=== PATIENT | male | born 1950 | race Caucasian/White ===

== ENCOUNTER 2019-08-10 02:08 | Inpatient (IN) | payer OTHER ==
[~2019-08-10] VITALS: Ht 175.3 cm; Wt 84.7 kg
--- NOTE | 2019-08-10 02:11 | NUR ---
PT LALA [facility] FROM HOME FOR /O SOB EMS STATES PT WAS NOT SNEHA HOME O2 OR C PAP AND WAS 38% ON ROOM AIR PT PLACED ON 4L NC AND SATS RETURNED TO 96%, ON ARRIVAL PT TEMP 103.6 OTHER VSS PT RESPONDS TO QUESTIONS SLOWLY AND UNABLE TO ANSWER SOME, PT LIVES AT HOME WITH
[2019-08-10] MEDS ORDERED: ACETAMINOPHEN 325 MG TABLET ONE (02:17)
[2019-08-10] MEDS ORDERED: FEBU40TA PO (02:22)
[2019-08-10] MEDS ORDERED: ESCI20TA PO (02:24)
[2019-08-10] MEDS ORDERED: SPIR25TA5 PO (02:27)
[2019-08-10] MEDS ORDERED: ATOR20TA37 PO (02:27)
[2019-08-10] MEDS ORDERED: ENAL20TA PO (02:27)
[2019-08-10] MEDS ORDERED: GABA300C10 PO (02:27)
[2019-08-10] MEDS ORDERED: LORA-446 PO (02:27)
[2019-08-10] MEDS ORDERED: AMLO-150 PO (02:27)
[2019-08-10] MEDS ORDERED: METO50TA82 PO (02:27)
[2019-08-10] MEDS ORDERED: LEVO50TA5 PO (02:27)
[2019-08-10] MEDS ORDERED: SODIUM CHLORIDE 0.9% 1,000ML IVBOLUS ONE (02:30)
[2019-08-10] MEDS ORDERED: ACETAMINOPHEN 325 MG TABLET PO ONE (02:30)
--- NOTE | 2019-08-10 02:36 | NUR ---
PT TOLERATED ALL MEDICAL PROCEDURES, PLACED ON ALL MONITORS, MEDS GIVEN
[2019-08-10 02:50] LABS: BASOPHILS # (AUTO) 0.03 x10^3/uL (0-0.1); BASOPHILS % (AUTO) 1 % (0-1); EOSINOPHILS # (AUTO) 0.05 x10^3/uL (0-0.4); EOSINOPHILS % (AUTO) 1 % (1-7); LYMPHOCYTES # (AUTO) 0.92 x10^3/uL (1-3.4); LYMPHOCYTES % (AUTO) 14 % (22-44); MD NO; MEAN CORPUSCULAR HEMOGLOBIN 32.1 pg (27.5-34.5); MEAN CORPUSCULAR HGB CONC 32.9 g/dL (33.2-36.2); MEAN CORPUSCULAR VOLUME 97.5 fL (81-97); MEAN PLATELET VOLUME 8.9 fL (7.4-10.4); MONOCYTES # (AUTO) 0.42 x10^3/uL (0.2-0.8); MONOCYTES % (AUTO) 7 % (2-9); NEUTROPHILS # (AUTO) 5.02 x10^3/uL (1.8-6.8); NEUTROPHILS % (AUTO) 78 % (42-75); PLATELET COUNT 198 x10^3/uL (130-400); RED BLOOD COUNT 3.86 x10^6/uL (4.38-5.82); RED CELL DISTRIBUTION WIDTH 13.5 % (9.4-14.8)
[2019-08-10 03:02] LABS: ALBUMIN 3.1 g/dL (3.4-5.0); ANION GAP 6 mmol/L (5-15); CALCIUM 8.2 mg/dL (8.5-10.1); CHLORIDE 106 mmol/L (98-107)
[2019-08-10 03:08] LABS: ALANINE AMINOTRANSFERASE 25 U/L (12-78); ALKALINE PHOSPHATASE 44 U/L (45-117); BILIRUBIN,TOTAL 0.4 mg/dL (0.2-1.0); CREATININE 1.46 mg/dL (0.7-1.3); TOTAL PROTEIN 6.4 g/dL (6.4-8.2); TROPONIN I < 0.015 ng/mL (0.000-0.045)
[2019-08-10] MEDS ORDERED: CEFEPIME 1 GM in DEXTROSE 5% 50 ML IV ONE (03:30)
[2019-08-10] MEDS ORDERED: VANCOMYCIN PER PHARMACY MC PRN ×2 (03:30→04:30)
[2019-08-10 03:41] LABS: RAPID INFLUENZA A Negative (Negative); RAPID INFLUENZA B Negative (Negative)
[2019-08-10] MEDS ORDERED: VANCOMYCIN 1,600 MG in SODIUM CHLORIDE 0.9% 250 ML IV SCH (03:45)
[2019-08-10] MEDS: VANCOMYCIN 1,600 MG in SODIUM CHLORIDE 0.9% 250 ML IV ONE (03:45)
--- NOTE | 2019-08-10 03:45 | NUR ---
AWAITING ADMIT BED, ADMITTING MD AT BS
[2019-08-10] MEDS ORDERED: PHARMACY MAY ADJ FOR RENAL FX MC PRN (04:30)
[2019-08-10] MEDS ORDERED: ACETAMINOPHEN 325 MG TABLET PO PRN (04:30)
[2019-08-10] MEDS ORDERED: hydrALAzine 20 MG/ML, 1ML IVPush PRN (04:30)
[2019-08-10] MEDS ORDERED: ONDANSETRON 2MG/ML, 2ML IVPush PRN (04:30)
--- NOTE | 2019-08-10 04:41 | NUR ---
REPORT TO [facility] PT TO FLOOR WITH ОЛЬГА
[2019-08-10] MEDS ORDERED: CIPROFLOXACIN/PMX 400MG/200ML 200 ML IVPB SCH (05:00)
[2019-08-10] MEDS: HEPARIN 5,000 UNITS/ML, 1ML SQ SCH ×3 (05:00→20:29)
[2019-08-10 05:01] VITALS: BP 123/54
[2019-08-10 05:03] LABS: FREE T4 (FREE THYROXINE) 0.93 ng/dL (0.76-1.46)
[2019-08-10] MEDS ORDERED: PHARMACOKINETIC MONITORING MC PRN (05:30)
[2019-08-10] MEDS ORDERED: GABAPENTIN 100 MG CAPSULE PO SCH (06:00)
[2019-08-10] MEDS ORDERED: PIPERACILLIN/TAZO/PMX 4.5GM 100 ML IVPB SCH (06:00)
[2019-08-10] MEDS ORDERED: LEVOTHYROXINE 50 MCG TABLET PO SCH (06:30)
[2019-08-10] MEDS: METOPROLOL TARTRATE 50 MG TAB PO SCH ×3 (07:48→20:30)
[2019-08-10] MEDS: SPIRONOLACTONE 25 MG TABLET PO SCH (07:48)
[2019-08-10] MEDS: ESCITALOPRAM 10MG TABLET PO SCH (07:48)
[2019-08-10] MEDS: AMLODIPINE 5 MG TABLET PO SCH (07:48)
[2019-08-10] MEDS: GABAPENTIN 300 MG CAPSULE PO SCH ×4 (07:50→20:28)
[2019-08-10] MEDS: ENALAPRIL 20MG TABLET PO SCH ×2 (07:58→20:29)
[2019-08-10] MEDS: FEBUXOSTAT 40 MG TABLET PO SCH (07:58)
[2019-08-10 08:23] VITALS: BP 102/51
[2019-08-10] MEDS ORDERED: LORazepam 0.5MG TABLET PO SCH (09:00)
[2019-08-10] MEDS ORDERED: LORazepam 1MG TABLET PO SCH (09:00)
[2019-08-10 10:54] LABS: MICROSCOPIC NOT IND
[2019-08-10 11:03] LABS: CULTURE INDICATED? NO
[2019-08-10] MEDS: PIPERACILLIN/TAZO/PMX 4.5GM 100 ML IVPB SCH ×2 (13:43→20:29)
[2019-08-10 13:44] VITALS: BP 111/53
[2019-08-10] MEDS: LORazepam 0.5MG TABLET PO PRN ×2 (15:35→20:29)
[2019-08-10] MEDS: OXYcodone IR 5MG TABLET PO PRN (16:20)
[2019-08-10] MEDS: LIDODERM 5% PATCH TD SCH (16:25)
[2019-08-10 18:49] VITALS: BP 117/61
[2019-08-10] MEDS: TEMAZEPAM 15 MG CAPSULE PO PRN (20:28)
[2019-08-10] MEDS: ATORVASTATIN 20 MG TABLET PO SCH (20:29)
[2019-08-11 00:47] VITALS: BP 118/54
[2019-08-11] MEDS: PIPERACILLIN/TAZO/PMX 4.5GM 100 ML IVPB SCH ×4 (02:50→20:07)
[2019-08-11] MEDS: OXYcodone IR 5MG TABLET PO PRN ×3 (03:42→16:12)
[2019-08-11] MEDS: LORazepam 0.5MG TABLET PO PRN ×4 (03:42→23:19)
[2019-08-11 05:00] VITALS: BP 132/63
[2019-08-11] MEDS: LEVOTHYROXINE 25 MCG TABLET PO SCH (05:16)
[2019-08-11] MEDS: HEPARIN 5,000 UNITS/ML, 1ML SQ SCH ×3 (05:17→20:07)
[2019-08-11] MEDS: GABAPENTIN 300 MG CAPSULE PO SCH ×4 (05:17→20:08)
[2019-08-11] MEDS: VANCOMYCIN 1,700 MG in SODIUM CHLORIDE 0.9% 250 ML IV SCH (05:17)
[2019-08-11 06:20] LABS: BASOPHILS # (AUTO) 0.02 x10^3/uL (0-0.1); BASOPHILS % (AUTO) 0 % (0-1); EOSINOPHILS # (AUTO) 0.09 x10^3/uL (0-0.4); EOSINOPHILS % (AUTO) 2 % (1-7); LYMPHOCYTES # (AUTO) 1.21 x10^3/uL (1-3.4); LYMPHOCYTES % (AUTO) 21 % (22-44); MD NO; MEAN CORPUSCULAR HGB CONC 32.8 g/dL (33.2-36.2); MEAN CORPUSCULAR VOLUME 97.6 fL (81-97); MEAN PLATELET VOLUME 8.4 fL (7.4-10.4); MONOCYTES # (AUTO) 0.41 x10^3/uL (0.2-0.8); MONOCYTES % (AUTO) 7 % (2-9); NEUTROPHILS # (AUTO) 4.11 x10^3/uL (1.8-6.8); NEUTROPHILS % (AUTO) 70 % (42-75); PLATELET COUNT 175 x10^3/uL (130-400); RED CELL DISTRIBUTION WIDTH 13.4 % (9.4-14.8)
[2019-08-11 06:27] LABS: ANION GAP 5 mmol/L (5-15); CALCIUM 8.8 mg/dL (8.5-10.1); CHLORIDE 108 mmol/L (98-107); CREATININE 1.08 mg/dL (0.7-1.3)
[2019-08-11 06:30] LABS: C-REACTIVE PROTEIN, QUANT 0.38 mg/dL (0.02-0.49)
[2019-08-11] MEDS: METOPROLOL TARTRATE 50 MG TAB PO SCH ×2 (08:16→20:08)
[2019-08-11] MEDS: SPIRONOLACTONE 25 MG TABLET PO SCH (08:16)
[2019-08-11] MEDS: ESCITALOPRAM 10MG TABLET PO SCH (08:17)
[2019-08-11] MEDS: ENALAPRIL 20MG TABLET PO SCH ×2 (08:17→20:08)
[2019-08-11] MEDS: FEBUXOSTAT 40 MG TABLET PO SCH (08:17)
[2019-08-11] MEDS: AMLODIPINE 5 MG TABLET PO SCH (08:17)
[2019-08-11 08:36] VITALS: BP_SYST 102; BP_SYST 142; BP_DIAS 86
[2019-08-11] MEDS ORDERED: GABAPENTIN 100 MG CAPSULE ONE (11:27)
[2019-08-11 14:19] VITALS: BP 107/66
[2019-08-11] MEDS: LIDODERM 5% PATCH TD SCH (16:11)
[2019-08-11 18:57] VITALS: BP 124/61
[2019-08-11] MEDS: LIDODERM REMOVE PATCH NOTE XX SCH (20:08)
[2019-08-11] MEDS: ATORVASTATIN 20 MG TABLET PO SCH (20:08)
[2019-08-11] MEDS: TEMAZEPAM 15 MG CAPSULE PO PRN (23:20)
[2019-08-12 00:45] VITALS: BP 136/82
[2019-08-12] MEDS: PIPERACILLIN/TAZO/PMX 4.5GM 100 ML IVPB SCH ×4 (02:19→20:39)
[2019-08-12] MEDS: VANCOMYCIN 1,700 MG in SODIUM CHLORIDE 0.9% 250 ML IV SCH (05:01)
[2019-08-12] MEDS: LEVOTHYROXINE 25 MCG TABLET PO SCH (05:02)
[2019-08-12] MEDS: GABAPENTIN 300 MG CAPSULE PO SCH ×4 (05:02→20:39)
[2019-08-12] MEDS: HEPARIN 5,000 UNITS/ML, 1ML SQ SCH ×3 (05:02→20:39)
[2019-08-12 07:44] VITALS: BP 135/78
[2019-08-12] MEDS: ESCITALOPRAM 10MG TABLET PO SCH (08:19)
[2019-08-12] MEDS: LORazepam 0.5MG TABLET PO PRN ×3 (08:20→20:40)
[2019-08-12] MEDS: LIDODERM 5% PATCH TD SCH ×2 (08:20→08:54)
[2019-08-12] MEDS: FEBUXOSTAT 40 MG TABLET PO SCH (08:20)
[2019-08-12] MEDS: METOPROLOL TARTRATE 50 MG TAB PO SCH ×2 (08:20→20:40)
[2019-08-12] MEDS: ENALAPRIL 20MG TABLET PO SCH ×2 (08:20→20:40)
[2019-08-12 13:26] VITALS: BP 154/77
[2019-08-12] MEDS ORDERED: LOPERAMIDE 2 MG CAPSULE PO ONE (13:30)
[2019-08-12 18:38] VITALS: BP 129/68
[2019-08-12] MEDS: ATORVASTATIN 20 MG TABLET PO SCH (20:39)
[2019-08-12] MEDS: LIDODERM REMOVE PATCH NOTE XX SCH (20:40)
[2019-08-13 00:10] VITALS: BP 131/62
[2019-08-13] MEDS: PIPERACILLIN/TAZO/PMX 4.5GM 100 ML IVPB SCH ×4 (01:48→20:18)
[2019-08-13] MEDS: LEVOTHYROXINE 25 MCG TABLET PO SCH (04:52)
[2019-08-13] MEDS: VANCOMYCIN 1,700 MG in SODIUM CHLORIDE 0.9% 250 ML IV SCH (04:53)
[2019-08-13] MEDS: GABAPENTIN 300 MG CAPSULE PO SCH ×4 (04:53→20:17)
[2019-08-13] MEDS: HEPARIN 5,000 UNITS/ML, 1ML SQ SCH ×3 (04:53→20:19)
[2019-08-13] MEDS: LOPERAMIDE 2 MG CAPSULE PO PRN ×2 (05:14→20:29)
[2019-08-13 07:26] VITALS: BP 137/64
[2019-08-13] MEDS: LORazepam 0.5MG TABLET PO PRN ×3 (09:11→22:01)
[2019-08-13] MEDS: FEBUXOSTAT 40 MG TABLET PO SCH (09:11)
[2019-08-13] MEDS: ENALAPRIL 20MG TABLET PO SCH ×2 (09:11→20:17)
[2019-08-13] MEDS: ESCITALOPRAM 10MG TABLET PO SCH (09:11)
[2019-08-13] MEDS: METOPROLOL TARTRATE 50 MG TAB PO SCH ×2 (09:11→20:16)
[2019-08-13] MEDS: LIDODERM 5% PATCH TD SCH (09:12)
[2019-08-13 12:16] VITALS: BP 140/73
[2019-08-13 19:35] VITALS: BP 131/65
[2019-08-13] MEDS: ATORVASTATIN 20 MG TABLET PO SCH (20:17)
[2019-08-13] MEDS: LIDODERM REMOVE PATCH NOTE XX SCH (20:18)
[2019-08-13] MEDS: OXYcodone IR 5MG TABLET PO PRN (21:10)
[2019-08-14] MEDS: PIPERACILLIN/TAZO/PMX 4.5GM 100 ML IVPB SCH ×4 (01:45→19:57)
[2019-08-14 01:50] VITALS: BP 129/68
[2019-08-14] MEDS: HEPARIN 5,000 UNITS/ML, 1ML SQ SCH ×3 (04:43→19:58)
[2019-08-14] MEDS: VANCOMYCIN 1,700 MG in SODIUM CHLORIDE 0.9% 250 ML IV SCH (04:43)
[2019-08-14 06:14] LABS: BASOPHILS # (AUTO) 0.01 x10^3/uL (0-0.1); BASOPHILS % (AUTO) 0 % (0-1); EOSINOPHILS # (AUTO) 0.08 x10^3/uL (0-0.4); EOSINOPHILS % (AUTO) 2 % (1-7); LYMPHOCYTES # (AUTO) 1.11 x10^3/uL (1-3.4); LYMPHOCYTES % (AUTO) 25 % (22-44); MD NO; MEAN CORPUSCULAR HEMOGLOBIN 32.2 pg (27.5-34.5); MEAN CORPUSCULAR VOLUME 97.6 fL (81-97); MEAN PLATELET VOLUME 8.3 fL (7.4-10.4); MONOCYTES # (AUTO) 0.44 x10^3/uL (0.2-0.8); MONOCYTES % (AUTO) 10 % (2-9); NEUTROPHILS # (AUTO) 2.77 x10^3/uL (1.8-6.8); NEUTROPHILS % (AUTO) 63 % (42-75); PLATELET COUNT 214 x10^3/uL (130-400); RED BLOOD COUNT 4.11 x10^6/uL (4.38-5.82); RED CELL DISTRIBUTION WIDTH 13.7 % (9.4-14.8)
[2019-08-14 06:22] LABS: ANION GAP 6 mmol/L (5-15); CHLORIDE 107 mmol/L (98-107)
[2019-08-14] MEDS: LEVOTHYROXINE 25 MCG TABLET PO SCH (06:23)
[2019-08-14] MEDS: GABAPENTIN 300 MG CAPSULE PO SCH ×4 (06:23→19:58)
[2019-08-14 06:24] LABS: CALCIUM 9.2 mg/dL (8.5-10.1); CREATININE 1.22 mg/dL (0.7-1.3)
[2019-08-14 07:32] VITALS: BP 131/66
[2019-08-14] MEDS: LIDODERM 5% PATCH TD SCH (07:39)
[2019-08-14] MEDS: ESCITALOPRAM 10MG TABLET PO SCH (07:40)
[2019-08-14] MEDS: METOPROLOL TARTRATE 50 MG TAB PO SCH ×2 (07:40→20:00)
[2019-08-14] MEDS: ENALAPRIL 20MG TABLET PO SCH ×2 (07:40→19:59)
[2019-08-14] MEDS: FEBUXOSTAT 40 MG TABLET PO SCH (07:40)
[2019-08-14] MEDS: AMLODIPINE 5 MG TABLET PO SCH (08:42)
[2019-08-14] MEDS: OXYcodone IR 5MG TABLET PO PRN (11:12)
[2019-08-14 12:48] VITALS: BP 122/58
[2019-08-14 16:09] VITALS: BP 117/63
[2019-08-14] MEDS: LORazepam 0.5MG TABLET PO PRN (20:00)
[2019-08-14] MEDS: LOPERAMIDE 2 MG CAPSULE PO PRN (20:00)
[2019-08-14] MEDS: ATORVASTATIN 20 MG TABLET PO SCH (20:01)
[2019-08-14 20:45] VITALS: BP 116/63
[2019-08-14] MEDS: LIDODERM REMOVE PATCH NOTE XX SCH (21:00)
[2019-08-15 01:44] VITALS: BP 118/64
[2019-08-15] MEDS: LOPERAMIDE 2 MG CAPSULE PO PRN (02:12)
[2019-08-15] MEDS: LORazepam 0.5MG TABLET PO PRN ×4 (02:12→23:06)
[2019-08-15] MEDS: PIPERACILLIN/TAZO/PMX 4.5GM 100 ML IVPB SCH ×2 (02:12→10:00)
[2019-08-15] MEDS: HEPARIN 5,000 UNITS/ML, 1ML SQ SCH ×3 (04:38→20:15)
[2019-08-15] MEDS: VANCOMYCIN 1,700 MG in SODIUM CHLORIDE 0.9% 250 ML IV SCH (05:24)
[2019-08-15] MEDS: GABAPENTIN 300 MG CAPSULE PO SCH ×4 (06:18→20:14)
[2019-08-15] MEDS: LEVOTHYROXINE 25 MCG TABLET PO SCH (06:18)
[2019-08-15 07:36] VITALS: BP 121/64
[2019-08-15] MEDS: LIDODERM 5% PATCH TD SCH (09:00)
[2019-08-15] MEDS: FEBUXOSTAT 40 MG TABLET PO SCH (09:08)
[2019-08-15] MEDS: ENALAPRIL 20MG TABLET PO SCH ×2 (09:09→20:16)
[2019-08-15] MEDS: ESCITALOPRAM 10MG TABLET PO SCH (09:09)
[2019-08-15] MEDS: METOPROLOL TARTRATE 50 MG TAB PO SCH ×2 (09:09→20:17)
[2019-08-15] MEDS: AMLODIPINE 5 MG TABLET PO SCH (09:09)
[2019-08-15 12:48] VITALS: BP 108/64
[2019-08-15 19:01] VITALS: BP 113/63
[2019-08-15] MEDS: ATORVASTATIN 20 MG TABLET PO SCH (20:14)
[2019-08-15] MEDS: LIDODERM REMOVE PATCH NOTE XX SCH (20:20)
[2019-08-16 01:00] VITALS: BP 149/78
[2019-08-16] MEDS: HEPARIN 5,000 UNITS/ML, 1ML SQ SCH ×3 (05:22→20:52)
[2019-08-16] MEDS: GABAPENTIN 300 MG CAPSULE PO SCH ×4 (05:23→20:52)
[2019-08-16] MEDS: LORazepam 0.5MG TABLET PO PRN ×3 (05:29→17:53)
[2019-08-16] MEDS: LEVOTHYROXINE 25 MCG TABLET PO SCH (05:30)
[2019-08-16 05:43] LABS: BASOPHILS # (AUTO) 0.03 x10^3/uL (0-0.1); BASOPHILS % (AUTO) 1 % (0-1); EOSINOPHILS # (AUTO) 0.13 x10^3/uL (0-0.4); EOSINOPHILS % (AUTO) 3 % (1-7); LYMPHOCYTES # (AUTO) 1.09 x10^3/uL (1-3.4); LYMPHOCYTES % (AUTO) 22 % (22-44); MD NO; MEAN CORPUSCULAR HEMOGLOBIN 31.5 pg (27.5-34.5); MEAN CORPUSCULAR HGB CONC 32.5 g/dL (33.2-36.2); MEAN CORPUSCULAR VOLUME 97.1 fL (81-97); MEAN PLATELET VOLUME 8.8 fL (7.4-10.4); MONOCYTES % (AUTO) 10 % (2-9); NEUTROPHILS # (AUTO) 3.32 x10^3/uL (1.8-6.8); NEUTROPHILS % (AUTO) 66 % (42-75); PLATELET COUNT 199 x10^3/uL (130-400); RED BLOOD COUNT 4.12 x10^6/uL (4.38-5.82); RED CELL DISTRIBUTION WIDTH 13.9 % (9.4-14.8)
[2019-08-16 05:53] LABS: ANION GAP 8 mmol/L (5-15); CHLORIDE 109 mmol/L (98-107)
[2019-08-16 05:58] LABS: ALANINE AMINOTRANSFERASE 51 U/L (12-78); ALKALINE PHOSPHATASE 124 U/L (45-117); BILIRUBIN,TOTAL 0.6 mg/dL (0.2-1.0); CREATININE 0.99 mg/dL (0.7-1.3); TOTAL PROTEIN 6.8 g/dL (6.4-8.2)
[2019-08-16 06:38] VITALS: BP 130/71
[2019-08-16] MEDS ORDERED: AZITHROMYCIN 500 MG TABLET PO ONE (07:00)
[2019-08-16] MEDS ORDERED: POTASSIUM CHLORIDE 20 MEQ TAB.ER.PRT PO ONE (07:00)
[2019-08-16] MEDS: LIDODERM 5% PATCH TD SCH (09:00)
[2019-08-16] MEDS: AMLODIPINE 5 MG TABLET PO SCH (09:07)
[2019-08-16] MEDS: ENALAPRIL 20MG TABLET PO SCH ×2 (09:08→20:53)
[2019-08-16] MEDS: ESCITALOPRAM 10MG TABLET PO SCH (09:08)
[2019-08-16] MEDS: METOPROLOL TARTRATE 50 MG TAB PO SCH ×2 (09:08→20:52)
[2019-08-16] MEDS: FEBUXOSTAT 40 MG TABLET PO SCH (09:09)
[2019-08-16] MEDS ORDERED: Lidoderm Remove Patch XX (11:53)
[2019-08-16] MEDS ORDERED: AZIT250T89 PO (11:55)
[2019-08-16 14:48] VITALS: BP 103/71
[2019-08-16] MEDS ORDERED: LORazepam 1MG TABLET ONE (17:50)
[2019-08-16] MEDS: ATORVASTATIN 20 MG TABLET PO SCH (20:52)
[2019-08-16] MEDS: LIDODERM REMOVE PATCH NOTE XX SCH (20:53)
[2019-08-16 21:12] VITALS: BP 122/70
[2019-08-16] MEDS ORDERED: LORazepam 0.5MG TABLET PO PRN (21:30)
[2019-08-17] MEDS: LORazepam 0.5MG TABLET PO PRN ×2 (00:13→08:30)
[2019-08-17 01:26] VITALS: BP 130/72
[2019-08-17] MEDS: GABAPENTIN 300 MG CAPSULE PO SCH ×3 (05:33→15:59)
[2019-08-17] MEDS: HEPARIN 5,000 UNITS/ML, 1ML SQ SCH ×2 (05:33→12:46)
[2019-08-17] MEDS: LEVOTHYROXINE 25 MCG TABLET PO SCH (05:33)
[2019-08-17] MEDS: AMLODIPINE 5 MG TABLET PO SCH (08:29)
[2019-08-17] MEDS: ESCITALOPRAM 10MG TABLET PO SCH (08:29)
[2019-08-17] MEDS: METOPROLOL TARTRATE 50 MG TAB PO SCH (08:29)
[2019-08-17] MEDS: ENALAPRIL 20MG TABLET PO SCH (08:30)
[2019-08-17 08:33] VITALS: BP 133/72
[2019-08-17] MEDS: FEBUXOSTAT 40 MG TABLET PO SCH (08:48)
[2019-08-17] MEDS: LIDODERM 5% PATCH TD SCH (08:49)
== END 2019-08-17 17:15 | DRG 871 ==
LOC: ED 02:42 → EDIP 03:24 → 3E 04:59 → 4NW 08-12 10:19 → 3N 08-14 09:10 → 4NW 08-14 12:16 → 3N 08-14 12:47
PROVIDERS: ADMIT Family Medicine; ATTEND Internal Medicine
DX: A41.9 Sepsis, unspecified organism (principal); J96.92 Respiratory failure, unspecified with hypercapnia; J18.9 Pneumonia, unspecified organism; N17.9 Acute kidney failure, unspecified; D53.9 Nutritional anemia, unspecified; E03.9 Hypothyroidism, unspecified; E78.5 Hyperlipidemia, unspecified; F41.1 Generalized anxiety disorder; I10 Essential (primary) hypertension; Y95 Nosocomial condition; Z86.73 Personal history of transient ischemic attack (TIA), and cerebral infarction without residual deficits; Z87.891 Personal history of nicotine dependence; Z91.19 Patient's noncompliance with other medical treatment and regimen; Z96.641 Presence of right artificial hip joint; Z88.2 Allergy status to sulfonamides; Z88.8 Allergy status to other drugs, medicaments and biological substances; Z20.828 Contact with and (suspected) exposure to other viral communicable diseases
CPT/HCPCS: 36415; 36600; 71045; 80048; 80053; 80202; 81003; 82803; 83605; 83615; 83735; 83880; 84100; 84145; 84439; 84443; 84481; 84484; 85025; 85379; 86140; 87040; 87400; 93005; 93306; 99285; G0378; J0692; J1644; J2543; J3370; J7030; J7050; U0001